=== PATIENT | male | born 1955 | race African-American/Black ===

== ENCOUNTER 2021-01-31 13:07 | Inpatient (IN) | payer MEDICAID ==
[~2021-01-31] VITALS: Ht 177.8 cm; Wt 72.7 kg
[2021-01-31 17:59] LABS: BASOPHILS % (AUTO) 0.9 % (0.0-2.0); EOSINOPHILS % (AUTO) 0.9 % (1.0-6.0); HEMATOCRIT 36.1 % (41-53); HEMOGLOBIN 12.7 g/dL (13.5-17.5); LYMPHOCYTES # (AUTO) 0.9 K/uL (1.0-4.8); LYMPHOCYTES % (AUTO) 17.5 % (22.0-44.0); MEAN CORPUSCULAR HEMOGLOBIN 34.9 pg (26.0-34.0); MEAN CORPUSCULAR HGB CONC 35.2 G/dL (31.0-37.0); MEAN CORPUSCULAR VOLUME 99 fL (80-100); MONOCYTES # (AUTO) 0.4 K/uL (0.1-1.0); MONOCYTES % (AUTO) 8.3 % (2.0-9.0); NEUTROPHILS # (AUTO) 3.7 K/uL (1.8-7.7); NEUTROPHILS % (AUTO) 72.4 % (40.0-70.0); PLATELET COUNT (AUTO) 192 K/uL (150-450); RED BLOOD CELL COUNT(AUTO) 3.64 MIL/uL (4.50-5.90); RED CELL DISTRIBUTION WIDTH 12.6 % (11.5-14.5)
[2021-01-31 18:12] LABS: ANION GAP 9 mmol/L (8-16); CALCIUM, TOTAL 9.1 mg/dL (8.8-10.5); CARBON DIOXIDE 31 mmol/L (22-29); CHLORIDE 94 mmol/L (98-107); CREATININE 0.62 mg/dL (0.60-1.30); GLOMERULAR FILTR. RATE CALC > 60 mL/min (>60); GLUCOSE,RANDOM 97 mg/dL (70-110); POTASSIUM 3.4 mmol/L (3.5-5.1); SODIUM SERUM 134 mmol/L (136-145); UREA NITROGEN, BLOOD 5 mg/dL (7-18)
[2021-01-31 18:17] LABS: ALANINE AMINOTRANSFERASE 36 U/L (12-78); ALBUMIN 3.5 g/dL (3.4-5.0); ALKALINE PHOSPHATASE 150 U/L (46-116); ASPARTATE AMINOTRANSFERASE 33 U/L (15-37); BILIRUBIN,TOTAL 2.2 mg/dL (0.1-1.0); TOTAL PROTEIN, SERUM 7.3 g/dL (6.4-8.2)
[2021-01-31 19:13] LABS: ERYTHROCYTE SEDIMENTATION RATE 6 MM/HR (0-15)
[2021-01-31 20:51] LABS: COVID AG,FIA SOURCE NASOPHARYNGEAL
[2021-01-31] MEDS ORDERED: ACETAMINOPHEN 325 MG TABLET PO PRN (21:00)
[2021-01-31] MEDS ORDERED: POTASSIUM CHLORIDE 20 MEQ ER TABLET PO PRN (21:00)
[2021-01-31] MEDS ORDERED: POTASSIUM CHL 10 MEQ/WATER 50 ML IV PRN (21:00)
[2021-01-31] MEDS: DOCUSATE SODIUM 100 MG CAPSULE PO SCH (21:43)
[2021-01-31] MEDS: HEPARIN SODIUM,PORCINE 5,000 UNITS/ML VIAL SQ SCH (23:36)
[2021-02-01] MEDS: OxyCODONE HCL/ACETAMINOPHEN 5-325 MG TABLET PO PRN ×2 (07:32→21:06)
[2021-02-01] MEDS: HEPARIN SODIUM,PORCINE 5,000 UNITS/ML VIAL SQ SCH ×3 (07:33→23:29)
[2021-02-01] MEDS: DOCUSATE SODIUM 100 MG CAPSULE PO SCH ×2 (08:20→20:58)
[2021-02-01] MEDS: FAMOTIDINE 20 MG TABLET PO SCH (08:20)
[2021-02-01] MEDS: ASPIRIN 81 MG CHEWABLE TABLET PO SCH (08:21)
[2021-02-01 09:15] VITALS: BP 163/109
[2021-02-01] MEDS ORDERED: CloNIDine HCL 0.1 MG TABLET PO ONE ×2 (09:45→16:15)
[2021-02-01 13:35] VITALS: BP 163/118
[2021-02-01] MEDS ORDERED: AmLODIPine BESYLATE 10 MG TABLET PO ONE (13:45)
[2021-02-01 15:36] VITALS: BP 164/94
[2021-02-01 19:34] VITALS: BP 141/90
[2021-02-02 04:42] VITALS: BP 152/88
[2021-02-02 08:08] VITALS: BP 159/98
[2021-02-02] MEDS: DOCUSATE SODIUM 100 MG CAPSULE PO SCH ×2 (08:44→20:57)
[2021-02-02] MEDS: AmLODIPine BESYLATE 10 MG TABLET PO SCH (08:44)
[2021-02-02] MEDS: FAMOTIDINE 20 MG TABLET PO SCH (08:44)
[2021-02-02] MEDS: ASPIRIN 81 MG CHEWABLE TABLET PO SCH (08:44)
[2021-02-02] MEDS: HEPARIN SODIUM,PORCINE 5,000 UNITS/ML VIAL SQ SCH ×3 (08:44→23:40)
[2021-02-02] MEDS ORDERED: LORazepam 2 MG/ML VIAL IVP ONE (09:30)
[2021-02-02] MEDS ORDERED: MIDAZOLAM HCL 2 MG/2 ML VIAL IVP ONE (09:45)
[2021-02-02] MEDS ORDERED: SODIUM CHLORIDE 0.9% 100 ML ONE (09:56)
[2021-02-02] MEDS ORDERED: IOHEXOL 350 MG/ML 150 ML VIAL ONE (09:56)
[2021-02-02 09:57] LABS: ANION GAP 11 mmol/L (8-16); CALCIUM, TOTAL 8.6 mg/dL (8.8-10.5); CARBON DIOXIDE 28 mmol/L (22-29); CHLORIDE 93 mmol/L (98-107); CREATININE 0.71 mg/dL (0.60-1.30); GLOMERULAR FILTR. RATE CALC > 60 mL/min (>60); GLUCOSE,RANDOM 153 mg/dL (70-110); POTASSIUM 3.5 mmol/L (3.5-5.1); SODIUM SERUM 132 mmol/L (136-145); UREA NITROGEN, BLOOD 7 mg/dL (7-18)
[2021-02-02 10:00] LABS: INR 0.9 (0.9-1.1)
[2021-02-02 10:04] LABS: ALANINE AMINOTRANSFERASE 27 U/L (12-78); ALBUMIN 3.3 g/dL (3.4-5.0); ALKALINE PHOSPHATASE 116 U/L (46-116); ASPARTATE AMINOTRANSFERASE 25 U/L (15-37); BILIRUBIN,TOTAL 0.9 mg/dL (0.1-1.0); TOTAL PROTEIN, SERUM 7.2 g/dL (6.4-8.2)
[2021-02-02 10:10] LABS: EOSINOPHILS % (AUTO) 6.2 % (1.0-6.0); HEMOGLOBIN 10.4 g/dL (13.5-17.5); LYMPHOCYTES # (AUTO) 1.1 K/uL (1.0-4.8); LYMPHOCYTES % (AUTO) 21.5 % (22.0-44.0); MEAN CORPUSCULAR HEMOGLOBIN 35.2 pg (26.0-34.0); MEAN CORPUSCULAR HGB CONC 34.8 G/dL (31.0-37.0); MEAN CORPUSCULAR VOLUME 101 fL (80-100); MONOCYTES # (AUTO) 0.5 K/uL (0.1-1.0); MONOCYTES % (AUTO) 10.8 % (2.0-9.0); NEUTROPHILS # (AUTO) 3.1 K/uL (1.8-7.7); NEUTROPHILS % (AUTO) 60.5 % (40.0-70.0); PLATELET COUNT (AUTO) 168 K/uL (150-450); RED BLOOD CELL COUNT(AUTO) 2.97 MIL/uL (4.50-5.90); RED CELL DISTRIBUTION WIDTH 12.7 % (11.5-14.5)
[2021-02-02 12:27] LABS: D-DIMER 2.08 mg/L FEU (0.00-0.50)
[2021-02-02 15:19] VITALS: BP 135/95
[2021-02-02 19:32] VITALS: BP 150/89
[2021-02-02 21:30] LABS: GLUCOMETER DEV NAME(LOC) 6N.1; GLUCOSE,POINT OF CARE 201 MG/DL (70-110)
[2021-02-02 23:33] VITALS: BP 150/96
[2021-02-03 03:35] VITALS: BP 146/88
[2021-02-03 06:16] LABS: CHOL/HDL RATIO 1.8 (4.2-7.3)
[2021-02-03 07:00] VITALS: BP 156/92
[2021-02-03] MEDS: AmLODIPine BESYLATE 10 MG TABLET PO SCH (08:43)
[2021-02-03] MEDS: FAMOTIDINE 20 MG TABLET PO SCH (08:43)
[2021-02-03] MEDS: ASPIRIN 81 MG CHEWABLE TABLET PO SCH (08:43)
[2021-02-03] MEDS: DOCUSATE SODIUM 100 MG CAPSULE PO SCH (08:43)
[2021-02-03] MEDS: HEPARIN SODIUM,PORCINE 5,000 UNITS/ML VIAL SQ SCH ×2 (08:43→16:00)
[2021-02-03] MEDS: OxyCODONE HCL/ACETAMINOPHEN 5-325 MG TABLET PO PRN (08:48)
[2021-02-03] MEDS ORDERED: LOSARTAN POTASSIUM 50 MG TABLET PO ONE (10:45)
[2021-02-03 11:45] VITALS: BP 134/84
[2021-02-03] MEDS ORDERED: ASPI-1450 PO (15:39)
[2021-02-03] MEDS ORDERED: AMLO-258 PO (15:40)
[2021-02-03] MEDS ORDERED: LOSA50TA37 PO (15:41)
[2021-02-04] MEDS ORDERED: LOSARTAN POTASSIUM 50 MG TABLET PO SCH (09:00)
== END 2021-02-03 16:40 | disposition home or self-care (01) | DRG 351 ==
LOC: EDBD 13:10 → EMS 13:10 → 6N 02-01 05:38 → 5S 02-02 05:38
PROVIDERS: ADMIT Internal Medicine; ATTEND Internal Medicine
DX: M25.562 Pain in left knee (principal); E87.6 Hypokalemia; F12.90 Cannabis use, unspecified, uncomplicated; R41.82 Altered mental status, unspecified; M25.362 Other instability, left knee; R29.6 Repeated falls; Z87.891 Personal history of nicotine dependence; Z59.00 Homelessness unspecified; Z79.899 Other long term (current) drug therapy; Z79.82 Long term (current) use of aspirin; Z20.822 Contact with and (suspected) exposure to COVID-19
CPT/HCPCS: 70450; 70496; 70551; 71045; 72100; 80053; 80061; 82947; 82962; 83605; 84484; 85025; 85379; 85610; 85651; 85730; 86850; 86900; 86901; 93005; 93306; 93880; 97116; 97161; 99285; G0480; J1644; J2250; J7050; Q9967; 36415-L1; 36415-TC

== ENCOUNTER 2021-08-16 13:02 | Inpatient (IN) | payer MEDICAID ==
[~2021-08-16] VITALS: Ht 182.9 cm; Wt 44.9 kg
[~2021-08-16 13:02] MED LIST: AMLO-258 PO; ASPI-1450 PO; LOSA-382 PO
[2021-08-16 15:34] LABS: BASOPHILS % (AUTO) 0.7 % (0.0-2.0); EOSINOPHILS % (AUTO) 1.9 % (1.0-6.0); HEMATOCRIT 32.4 % (41-53); HEMOGLOBIN 11.7 g/dL (13.5-17.5); LYMPHOCYTES # (AUTO) 0.8 K/uL (1.0-4.8); LYMPHOCYTES % (AUTO) 10.4 % (22.0-44.0); MEAN CORPUSCULAR HEMOGLOBIN 35.6 pg (26.0-34.0); MEAN CORPUSCULAR HGB CONC 36.2 G/dL (31.0-37.0); MEAN CORPUSCULAR VOLUME 99 fL (80-100); MONOCYTES # (AUTO) 0.3 K/uL (0.1-1.0); MONOCYTES % (AUTO) 3.8 % (2.0-9.0); NEUTROPHILS # (AUTO) 6.1 K/uL (1.8-7.7); NEUTROPHILS % (AUTO) 83.2 % (40.0-70.0); PLATELET COUNT (AUTO) 237 K/uL (150-450); RED BLOOD CELL COUNT(AUTO) 3.29 MIL/uL (4.50-5.90); RED CELL DISTRIBUTION WIDTH 12.7 % (11.5-14.5)
[2021-08-16 15:50] LABS: ALANINE AMINOTRANSFERASE 24 U/L (12-78); ALBUMIN 3.2 g/dL (3.4-5.0); ALKALINE PHOSPHATASE 138 U/L (46-116); ANION GAP 13 mmol/L (8-16); ASPARTATE AMINOTRANSFERASE 39 U/L (15-37); BILIRUBIN,TOTAL 0.6 mg/dL (0.1-1.0); CALCIUM, TOTAL 8.4 mg/dL (8.8-10.5); CARBON DIOXIDE 23 mmol/L (22-29); CHLORIDE 87 mmol/L (98-107); CREATININE 0.42 mg/dL (0.60-1.30); GLUCOSE,RANDOM 91 mg/dL (70-110); LIPASE 87 U/L (73-393); POTASSIUM 3.7 mmol/L (3.5-5.1); TOTAL PROTEIN, SERUM 7.1 g/dL (6.4-8.2); UREA NITROGEN, BLOOD 2 mg/dL (7-18)
[2021-08-16 15:52] LABS: GLOMERULAR FILTR. RATE CALC > 60 mL/min (>60); SODIUM SERUM 123 mmol/L (136-145)
[2021-08-16] MEDS ORDERED: SODIUM CHLORIDE 0.9% 1,000 ML IV ONE (16:00)
[2021-08-16 17:34] LABS: COVID AG,FIA SOURCE NASOPHARYNGEAL
[2021-08-16] MEDS ORDERED: FentaNYL CITRATE PF 100 MCG/2 ML VIAL IVP ONE (17:45)
[2021-08-16] MEDS ORDERED: ONDANSETRON HCL 4 MG/2 ML VIAL IVP PRN ×2 (19:00→20:00)
[2021-08-16] MEDS ORDERED: ACETAMINOPHEN 325 MG TABLET PO PRN ×2 (19:00→20:00)
[2021-08-16] MEDS ORDERED: 0.9% SODIUM CHLORIDE 10 ML SYRINGE IVP PRN (19:00)
[2021-08-16] MEDS ORDERED: ALBUTEROL SULFATE 2.5 MG/0.5 ML NEB SOLUTION NEB PRN (20:00)
[2021-08-16] MEDS ORDERED: MAGNESIUM HYDROXIDE SUSPENSION 30 ML UDCUP PO PRN (20:00)
[2021-08-16] MEDS ORDERED: BISACODYL 10 MG RECTAL RECTAL SUPPOSITORY PR PRN (20:00)
[2021-08-16] MEDS ORDERED: IPRATROPIUM BROMIDE 0.5 MG/2.5 ML NEB SOLUTION NEB PRN (20:00)
[2021-08-16] MEDS ORDERED: MORPHINE SULFATE 2 MG/ML SYRINGE IVP PRN (20:00)
[2021-08-16] MEDS: DOCUSATE SODIUM 100 MG CAPSULE PO SCH (22:11)
[2021-08-16] MEDS: HYDROCODONE/ACETAMINOPHEN 5-325 MG TABLET PO PRN (23:56)
[2021-08-17 00:45] VITALS: BP 167/102
[2021-08-17] MEDS: HEPARIN SODIUM,PORCINE 5,000 UNITS/ML VIAL SQ SCH ×3 (03:08→16:33)
[2021-08-17 05:00] VITALS: BP 143/96
[2021-08-17 08:25] VITALS: BP 142/92
[2021-08-17] MEDS: DOCUSATE SODIUM 100 MG CAPSULE PO SCH (08:33)
[2021-08-17] MEDS: ASPIRIN 81 MG CHEWABLE TABLET PO SCH (08:34)
[2021-08-17] MEDS: LOSARTAN POTASSIUM 50 MG TABLET PO SCH (08:34)
[2021-08-17] MEDS: AmLODIPine BESYLATE 10 MG TABLET PO SCH (08:34)
[2021-08-17] MEDS: PANTOPRAZOLE SODIUM 40 MG/VIAL IVP SCH (08:35)
[2021-08-17] MEDS: HYDROCODONE/ACETAMINOPHEN 5-325 MG TABLET PO PRN ×2 (08:39→16:35)
[2021-08-17 11:43] LABS: BASOPHILS % (AUTO) 0.9 % (0.0-2.0); EOSINOPHILS % (AUTO) 1.1 % (1.0-6.0); HEMATOCRIT 31.1 % (41-53); HEMOGLOBIN 11.4 g/dL (13.5-17.5); LYMPHOCYTES # (AUTO) 0.7 K/uL (1.0-4.8); LYMPHOCYTES % (AUTO) 15.3 % (22.0-44.0); MEAN CORPUSCULAR HEMOGLOBIN 35.9 pg (26.0-34.0); MEAN CORPUSCULAR HGB CONC 36.5 G/dL (31.0-37.0); MEAN CORPUSCULAR VOLUME 98 fL (80-100); MONOCYTES # (AUTO) 0.5 K/uL (0.1-1.0); MONOCYTES % (AUTO) 10.6 % (2.0-9.0); NEUTROPHILS # (AUTO) 3.2 K/uL (1.8-7.7); NEUTROPHILS % (AUTO) 72.1 % (40.0-70.0); PLATELET COUNT (AUTO) 240 K/uL (150-450); RED BLOOD CELL COUNT(AUTO) 3.17 MIL/uL (4.50-5.90); RED CELL DISTRIBUTION WIDTH 12.7 % (11.5-14.5)
[2021-08-17 11:58] LABS: ANION GAP 11 mmol/L (8-16); CALCIUM, TOTAL 8.3 mg/dL (8.8-10.5); CARBON DIOXIDE 27 mmol/L (22-29); CHLORIDE 88 mmol/L (98-107); CREATININE 0.44 mg/dL (0.60-1.30); GLUCOSE,RANDOM 78 mg/dL (70-110); POTASSIUM 3.5 mmol/L (3.5-5.1); SODIUM SERUM 126 mmol/L (136-145); UREA NITROGEN, BLOOD 4 mg/dL (7-18)
[2021-08-17 11:59] LABS: GLOMERULAR FILTR. RATE CALC > 60 mL/min (>60)
[2021-08-17 12:02] VITALS: BP 158/90
[2021-08-17 17:11] LABS: ANION GAP 8 mmol/L (8-16); CALCIUM, TOTAL 8.5 mg/dL (8.8-10.5); CARBON DIOXIDE 28 mmol/L (22-29); CHLORIDE 88 mmol/L (98-107); GLOMERULAR FILTR. RATE CALC > 60 mL/min (>60); GLUCOSE,RANDOM 85 mg/dL (70-110); POTASSIUM 3.2 mmol/L (3.5-5.1); UREA NITROGEN, BLOOD 5 mg/dL (7-18)
[2021-08-17 17:12] LABS: SODIUM SERUM 124 mmol/L (136-145)
[2021-08-17 19:09] VITALS: BP 146/90
[2021-08-17] MEDS ORDERED: POTASSIUM CHLORIDE 10 MEQ ER TABLET PO ONE (20:15)
[2021-08-17 23:44] VITALS: BP 141/89
[2021-08-18] MEDS: HEPARIN SODIUM,PORCINE 5,000 UNITS/ML VIAL SQ SCH ×4 (00:11→23:55)
[2021-08-18 00:26] LABS: APPEARANCE,URINE CLEAR (CLEAR); BILIRUBIN,URINE NEGATIVE (NEGATIVE); GLUCOSE, URINE (UA) NEGATIVE (NEGATIVE); KETONES,URINE TRACE mg/dL (NEGATIVE); LEUKOCYTE ESTERASE ,URINE NEGATIVE (NEGATIVE); NITRATE,URINE NEGATIVE (NEGATIVE); OCCULT BLOOD,URINE NEGATIVE (NEGATIVE); PROTEIN,URINE TRACE mg/dL (NEGATIVE); SODIUM,URINE RANDOM 31 mmol/l (20-110); SPECIFIC GRAVITIY, URINE 1.019 (1.003-1.030)
[2021-08-18 00:32] LABS: AMPHET/METH SCREEN,URINE NEGATIVE (NEGATIVE); BARBITURATE SCREEN, URINE NEGATIVE (NEGATIVE); BENZODIAZEPINES SCREEN,URINE NEGATIVE (NEGATIVE); CANNABINOID SCREEN,URINE POSITIVE (NEGATIVE); COCAINE SCREEN,URINE NEGATIVE (NEGATIVE); METHADONE SCREEN, URINE NEGATIVE (NEGATIVE); OPIATE SCREEN,URINE POSITIVE (NEGATIVE)
[2021-08-18 00:34] LABS: PHENCYCLIDINE SCREEN,URINE NEGATIVE (NEGATIVE)
[2021-08-18 04:20] VITALS: BP 143/90
[2021-08-18] MEDS: HYDROCODONE/ACETAMINOPHEN 5-325 MG TABLET PO PRN ×3 (06:27→23:57)
[2021-08-18 07:25] VITALS: BP 145/78
[2021-08-18 08:06] LABS: ANION GAP 9 mmol/L (8-16); CALCIUM, TOTAL 8.5 mg/dL (8.8-10.5); CARBON DIOXIDE 29 mmol/L (22-29); CHLORIDE 89 mmol/L (98-107); CREATININE 0.48 mg/dL (0.60-1.30); GLUCOSE,RANDOM 88 mg/dL (70-110); PHOSPHORUS 4.2 mg/dL (2.5-4.9); POTASSIUM 3.8 mmol/L (3.5-5.1); SODIUM SERUM 127 mmol/L (136-145); THYROID STIMULATING HORMONE 1.11 uIU/mL (0.36-3.74); UREA NITROGEN, BLOOD 6 mg/dL (7-18)
[2021-08-18 08:07] LABS: GLOMERULAR FILTR. RATE CALC > 60 mL/min (>60)
[2021-08-18] MEDS: DOCUSATE SODIUM 100 MG CAPSULE PO SCH ×2 (10:07→21:17)
[2021-08-18] MEDS: ASPIRIN 81 MG CHEWABLE TABLET PO SCH (10:08)
[2021-08-18] MEDS: LOSARTAN POTASSIUM 50 MG TABLET PO SCH (10:08)
[2021-08-18] MEDS: PANTOPRAZOLE SODIUM 40 MG/VIAL IVP SCH (10:08)
[2021-08-18] MEDS: AmLODIPine BESYLATE 10 MG TABLET PO SCH (10:09)
[2021-08-18] MEDS: POTASSIUM CHLORIDE 10 MEQ in SODIUM CHLORIDE 0.9% 1,000 ML IV SCH (11:35)
[2021-08-18 11:47] VITALS: BP 137/89
[2021-08-18 15:19] VITALS: BP 129/82
[2021-08-18 17:27] LABS: ANION GAP 7 mmol/L (8-16); CALCIUM, TOTAL 7.9 mg/dL (8.8-10.5); CARBON DIOXIDE 27 mmol/L (22-29); CHLORIDE 94 mmol/L (98-107); CREATININE 0.63 mg/dL (0.60-1.30); GLOMERULAR FILTR. RATE CALC > 60 mL/min (>60); GLUCOSE,RANDOM 116 mg/dL (70-110); POTASSIUM 3.6 mmol/L (3.5-5.1); SODIUM SERUM 128 mmol/L (136-145); UREA NITROGEN, BLOOD 9 mg/dL (7-18)
[2021-08-18 19:19] VITALS: BP 134/88
[2021-08-18] MEDS: ZOLPIDEM TARTRATE 5 MG TABLET PO PRN (21:17)
[2021-08-18 23:00] VITALS: BP 153/102
[2021-08-18] MEDS: SODIUM CHLORIDE 1 GM TABLET PO SCH (23:54)
[2021-08-19] MEDS: POTASSIUM CHLORIDE 10 MEQ in SODIUM CHLORIDE 0.9% 1,000 ML IV SCH (03:20)
[2021-08-19 04:38] VITALS: BP 152/93
[2021-08-19] MEDS: SODIUM CHLORIDE 1 GM TABLET PO SCH ×3 (05:34→17:18)
[2021-08-19] MEDS: HYDROCODONE/ACETAMINOPHEN 5-325 MG TABLET PO PRN ×2 (05:34→21:03)
[2021-08-19 07:37] LABS: ANION GAP 7 mmol/L (8-16); CALCIUM, TOTAL 8.3 mg/dL (8.8-10.5); CARBON DIOXIDE 27 mmol/L (22-29); CHLORIDE 91 mmol/L (98-107); CREATININE 0.42 mg/dL (0.60-1.30); GLUCOSE,RANDOM 106 mg/dL (70-110); PHOSPHORUS 2.9 mg/dL (2.5-4.9); POTASSIUM 3.1 mmol/L (3.5-5.1); SODIUM SERUM 125 mmol/L (136-145); UREA NITROGEN, BLOOD 3 mg/dL (7-18)
[2021-08-19 07:39] LABS: GLOMERULAR FILTR. RATE CALC > 60 mL/min (>60)
[2021-08-19 08:00] VITALS: BP 156/87
[2021-08-19] MEDS ORDERED: SODIUM CHLORIDE 3% 500 ML IV ONE (08:15)
[2021-08-19] MEDS ORDERED: POTASSIUM CHL 10 MEQ/WATER 50 ML IV PRN (08:15)
[2021-08-19] MEDS ORDERED: MAGNESIUM SULFATE 4 GM/WATER 100 ML IV ONE (08:15)
[2021-08-19] MEDS: POTASSIUM CHLORIDE 20 MEQ ER TABLET PO PRN (08:58)
[2021-08-19] MEDS: LOSARTAN POTASSIUM 50 MG TABLET PO SCH (08:58)
[2021-08-19] MEDS: ASPIRIN 81 MG CHEWABLE TABLET PO SCH (08:58)
[2021-08-19] MEDS: PANTOPRAZOLE SODIUM 40 MG/VIAL IVP SCH (08:58)
[2021-08-19] MEDS: DOCUSATE SODIUM 100 MG CAPSULE PO SCH ×2 (08:58→20:54)
[2021-08-19] MEDS: AmLODIPine BESYLATE 10 MG TABLET PO SCH (08:58)
[2021-08-19] MEDS: HEPARIN SODIUM,PORCINE 5,000 UNITS/ML VIAL SQ SCH ×2 (08:59→16:45)
[2021-08-19 12:09] LABS: POTASSIUM 3.6 mmol/L (3.5-5.1)
[2021-08-19 15:58] VITALS: BP 145/94
[2021-08-19 19:30] VITALS: BP 137/83
[2021-08-19] MEDS: METOPROLOL TARTRATE 25 MG TABLET PO SCH (20:55)
[2021-08-19] MEDS ORDERED: SODIUM CHLORIDE 3% 500 ML IV SCH (23:45)
[2021-08-20] MEDS: SODIUM CHLORIDE 1 GM TABLET PO SCH ×5 (00:41→23:40)
[2021-08-20] MEDS: HEPARIN SODIUM,PORCINE 5,000 UNITS/ML VIAL SQ SCH ×4 (00:42→23:41)
[2021-08-20 04:00] VITALS: BP 132/84
[2021-08-20 06:56] LABS: GLUCOMETER DEV NAME(LOC) 6N.1; GLUCOSE,POINT OF CARE 94 MG/DL (70-110)
[2021-08-20 07:44] VITALS: BP 144/89
[2021-08-20 08:35] LABS: ANION GAP 6 mmol/L (8-16); CALCIUM, TOTAL 8.7 mg/dL (8.8-10.5); CARBON DIOXIDE 29 mmol/L (22-29); CHLORIDE 95 mmol/L (98-107); CREATININE 0.36 mg/dL (0.60-1.30); GLUCOSE,RANDOM 88 mg/dL (70-110); PHOSPHORUS 2.7 mg/dL (2.5-4.9); POTASSIUM 3.2 mmol/L (3.5-5.1); SODIUM SERUM 130 mmol/L (136-145); UREA NITROGEN, BLOOD 3 mg/dL (7-18)
[2021-08-20 08:36] LABS: GLOMERULAR FILTR. RATE CALC > 60 mL/min (>60)
[2021-08-20] MEDS ORDERED: MAGNESIUM SULFATE 2 GM/WATER 50 ML IV ONE (09:15)
[2021-08-20] MEDS: PANTOPRAZOLE SODIUM 40 MG/VIAL IVP SCH (09:16)
[2021-08-20] MEDS: LOSARTAN POTASSIUM 50 MG TABLET PO SCH (09:16)
[2021-08-20] MEDS: AmLODIPine BESYLATE 10 MG TABLET PO SCH (09:16)
[2021-08-20] MEDS: ASPIRIN 81 MG CHEWABLE TABLET PO SCH (09:17)
[2021-08-20] MEDS: METOPROLOL TARTRATE 25 MG TABLET PO SCH ×2 (09:17→20:04)
[2021-08-20] MEDS: DOCUSATE SODIUM 100 MG CAPSULE PO SCH ×2 (09:17→20:04)
[2021-08-20] MEDS: HYDROCODONE/ACETAMINOPHEN 5-325 MG TABLET PO PRN ×2 (09:20→16:21)
[2021-08-20] MEDS: POTASSIUM CHLORIDE 20 MEQ ER TABLET PO PRN (09:49)
[2021-08-20] MEDS: MULTIVITAMINS, THERAPEUTIC TABLET PO SCH (13:09)
[2021-08-20] MEDS: THIAMINE 100 MG TABLET PO SCH (13:09)
[2021-08-20] MEDS: FOLIC ACID 1 MG TABLET PO SCH (13:09)
[2021-08-20 15:03] LABS: POTASSIUM 4.1 mmol/L (3.5-5.1)
[2021-08-20 15:33] VITALS: BP 162/86
[2021-08-20 19:26] VITALS: BP 142/93
[2021-08-20] MEDS: ZOLPIDEM TARTRATE 5 MG TABLET PO PRN (23:41)
[2021-08-21] MEDS: HYDROCODONE/ACETAMINOPHEN 5-325 MG TABLET PO PRN ×2 (04:19→20:22)
[2021-08-21 04:29] VITALS: BP_SYST 140; BP_DIAS 66; BP_DIAS 90
[2021-08-21 05:51] LABS: CALCIUM, TOTAL 8.3 mg/dL (8.8-10.5); CARBON DIOXIDE 28 mmol/L (22-29); CHLORIDE 92 mmol/L (98-107); CREATININE 0.38 mg/dL (0.60-1.30); GLUCOSE,RANDOM 84 mg/dL (70-110); UREA NITROGEN, BLOOD 6 mg/dL (7-18)
[2021-08-21] MEDS: SODIUM CHLORIDE 1 GM TABLET PO SCH ×4 (06:01→23:35)
[2021-08-21 06:20] LABS: POTASSIUM 3.9 mmol/L (3.5-5.1)
[2021-08-21 06:25] LABS: ANION GAP 6 mmol/L (8-16); GLOMERULAR FILTR. RATE CALC > 60 mL/min (>60); SODIUM SERUM 126 mmol/L (136-145)
[2021-08-21 08:12] VITALS: BP 139/89
[2021-08-21] MEDS: HEPARIN SODIUM,PORCINE 5,000 UNITS/ML VIAL SQ SCH ×3 (08:49→23:36)
[2021-08-21] MEDS: PANTOPRAZOLE SODIUM 40 MG/VIAL IVP SCH (08:49)
[2021-08-21] MEDS: ASPIRIN 81 MG CHEWABLE TABLET PO SCH (08:50)
[2021-08-21] MEDS: DOCUSATE SODIUM 100 MG CAPSULE PO SCH ×2 (08:50→20:22)
[2021-08-21] MEDS: LOSARTAN POTASSIUM 50 MG TABLET PO SCH (08:50)
[2021-08-21] MEDS: METOPROLOL TARTRATE 25 MG TABLET PO SCH ×2 (08:51→20:22)
[2021-08-21] MEDS: AmLODIPine BESYLATE 10 MG TABLET PO SCH (08:51)
[2021-08-21] MEDS: MULTIVITAMINS, THERAPEUTIC TABLET PO SCH (08:51)
[2021-08-21] MEDS: FOLIC ACID 1 MG TABLET PO SCH (08:51)
[2021-08-21] MEDS: THIAMINE 100 MG TABLET PO SCH (08:52)
[2021-08-21] MEDS: SODIUM CHLORIDE 3% 500 ML IV SCH ×2 (11:16→23:35)
[2021-08-21 16:16] VITALS: BP 130/86
[2021-08-21 20:14] VITALS: BP 158/88
[2021-08-22 04:59] VITALS: BP 143/92
[2021-08-22] MEDS: SODIUM CHLORIDE 1 GM TABLET PO SCH ×4 (05:17→23:42)
[2021-08-22] MEDS: HYDROCODONE/ACETAMINOPHEN 5-325 MG TABLET PO PRN ×3 (05:20→20:49)
[2021-08-22 08:00] VITALS: BP 158/101
[2021-08-22] MEDS: LOSARTAN POTASSIUM 50 MG TABLET PO SCH (10:14)
[2021-08-22] MEDS: ASPIRIN 81 MG CHEWABLE TABLET PO SCH (10:14)
[2021-08-22] MEDS: FOLIC ACID 1 MG TABLET PO SCH (10:15)
[2021-08-22] MEDS: HEPARIN SODIUM,PORCINE 5,000 UNITS/ML VIAL SQ SCH ×3 (10:15→23:42)
[2021-08-22] MEDS: AmLODIPine BESYLATE 10 MG TABLET PO SCH (10:15)
[2021-08-22] MEDS: MULTIVITAMINS, THERAPEUTIC TABLET PO SCH (10:15)
[2021-08-22] MEDS: PANTOPRAZOLE SODIUM 40 MG/VIAL IVP SCH (10:15)
[2021-08-22] MEDS: DOCUSATE SODIUM 100 MG CAPSULE PO SCH ×2 (10:16→20:48)
[2021-08-22] MEDS: THIAMINE 100 MG TABLET PO SCH (10:16)
[2021-08-22] MEDS: METOPROLOL TARTRATE 25 MG TABLET PO SCH ×2 (10:16→20:49)
[2021-08-22 10:41] VITALS: BP 149/90
[2021-08-22 16:00] VITALS: BP 109/70
[2021-08-22] MEDS ORDERED: SODIUM CHLORIDE 3% 500 ML IV SCH (18:00)
[2021-08-22] MEDS: SODIUM CHLORIDE 3% 500 ML IV SCH (18:08)
[2021-08-22 19:35] VITALS: BP 143/87
[2021-08-23 04:05] VITALS: BP 131/75
[2021-08-23] MEDS ORDERED: SODIUM CHLORIDE 0.9% 0 ML ONE (05:32)
[2021-08-23] MEDS ORDERED: SODIUM CHLORIDE 0.9% 1,000 ML IV ONE (06:00)
[2021-08-23] MEDS ORDERED: LIDOCAINE 1%/EPI 1:200,000/PF 30 ML VIAL ONE (06:15)
[2021-08-23] MEDS ORDERED: SODIUM CL IRRIG SOLN BAG 3,000 ML IRRIG ONE (06:15)
[2021-08-23] MEDS ORDERED: BUPIVACAINE HCL/PF 0.25% 30 ML VIAL ONE (06:15)
[2021-08-23] MEDS ORDERED: VANCOMYCIN HCL 1 GM/VIAL ONE (06:15)
[2021-08-23] MEDS ORDERED: BUPIVACAINE/EPI/PF 0.5% 30 ML VIAL ONE (07:41)
[2021-08-23] MEDS ORDERED: BUPIVACAINE 0.25%/EPI 1:200,000/PF 10 ML VIAL ONE (07:41)
[2021-08-23] MEDS ORDERED: BUPIVACAINE LIPOSOME/PF 1.3%-13.3MG/ML SUSPENSION 20 ML VIAL INJ ONE (08:30)
[2021-08-23] MEDS ORDERED: SUGAMMADEX SODIUM 200 MG/2 ML VIAL IVP ONE (09:17)
[2021-08-23] MEDS ORDERED: FentaNYL CITRATE PF 100 MCG/2 ML VIAL IVP PRN (10:00)
[2021-08-23] MEDS ORDERED: HYDROmorphone 2 MG/ML VIAL IVP PRN (10:00)
[2021-08-23 11:06] VITALS: BP 128/76
[2021-08-23] MEDS: HEPARIN SODIUM,PORCINE 5,000 UNITS/ML VIAL SQ SCH ×3 (11:23→23:20)
[2021-08-23] MEDS: HYDROCODONE/ACETAMINOPHEN 5-325 MG TABLET PO PRN ×3 (11:23→23:25)
[2021-08-23] MEDS: PANTOPRAZOLE SODIUM 40 MG/VIAL IVP SCH (11:23)
[2021-08-23] MEDS: THIAMINE 100 MG TABLET PO SCH (11:23)
[2021-08-23] MEDS: ASPIRIN 81 MG CHEWABLE TABLET PO SCH (11:24)
[2021-08-23] MEDS: FOLIC ACID 1 MG TABLET PO SCH (11:24)
[2021-08-23] MEDS: METOPROLOL TARTRATE 25 MG TABLET PO SCH ×2 (11:24→20:11)
[2021-08-23] MEDS: LOSARTAN POTASSIUM 50 MG TABLET PO SCH (11:24)
[2021-08-23] MEDS: AmLODIPine BESYLATE 10 MG TABLET PO SCH (11:24)
[2021-08-23] MEDS: MULTIVITAMINS, THERAPEUTIC TABLET PO SCH (11:24)
[2021-08-23] MEDS: DOCUSATE SODIUM 100 MG CAPSULE PO SCH ×2 (11:24→20:11)
[2021-08-23] MEDS ORDERED: ONDANSETRON HCL 4 MG/2 ML VIAL IVP ONE (12:00)
[2021-08-23] MEDS ORDERED: DEXAMETHASONE SOD PHOS 4 MG/ML VIAL IVP ONE (12:00)
[2021-08-23] MEDS ORDERED: PROPOFOL 1% 20 ML VIAL IVP ONE (12:00)
[2021-08-23] MEDS ORDERED: 0.9% SODIUM CHLORIDE 10 ML VIAL IVP ONE (12:00)
[2021-08-23] MEDS ORDERED: METOCLOPRAMIDE HCL 5 MG/ML 2 ML VIAL IVP ONE (12:00)
[2021-08-23] MEDS ORDERED: MIDAZOLAM HCL 2 MG/2 ML VIAL IVP ONE (12:00)
[2021-08-23] MEDS ORDERED: LIDOCAINE/PF 2% 5 ML VIAL IM ONE (12:00)
[2021-08-23] MEDS ORDERED: PHENYLEPHRINE HCL 10 MG/ML VIAL IVP ONE (12:00)
[2021-08-23] MEDS ORDERED: ESMOLOL HCL 10 MG/ML 10 ML VIAL IVP ONE (12:00)
[2021-08-23] MEDS ORDERED: HYDROmorphone 2 MG/ML VIAL IVP ONE (12:00)
[2021-08-23] MEDS ORDERED: FentaNYL CITRATE PF 250 MCG/5 ML VIAL IVP ONE (12:00)
[2021-08-23 15:33] LABS: ANION GAP 13 mmol/L (8-16); CALCIUM, TOTAL 8.5 mg/dL (8.8-10.5); CARBON DIOXIDE 25 mmol/L (22-29); CHLORIDE 99 mmol/L (98-107); CREATININE 0.75 mg/dL (0.60-1.30); GLOMERULAR FILTR. RATE CALC > 60 mL/min (>60); GLUCOSE,RANDOM 174 mg/dL (70-110); POTASSIUM 3.5 mmol/L (3.5-5.1); SODIUM SERUM 137 mmol/L (136-145); UREA NITROGEN, BLOOD 16 mg/dL (7-18)
[2021-08-23] MEDS: CeFAZolin 1 GM/DEXTROSE 50 ML IV SCH ×2 (15:57→23:19)
[2021-08-23 16:47] VITALS: BP 134/78
[2021-08-23 19:28] VITALS: BP 116/75
[2021-08-24 04:28] VITALS: BP 130/77
[2021-08-24 07:39] VITALS: BP 135/85
[2021-08-24 07:59] LABS: ANION GAP 6 mmol/L (8-16); CALCIUM, TOTAL 8.5 mg/dL (8.8-10.5); CARBON DIOXIDE 28 mmol/L (22-29); CHLORIDE 99 mmol/L (98-107); CREATININE 0.48 mg/dL (0.60-1.30); GLUCOSE,RANDOM 109 mg/dL (70-110); PHOSPHORUS 3.6 mg/dL (2.5-4.9); POTASSIUM 3.3 mmol/L (3.5-5.1); SODIUM SERUM 133 mmol/L (136-145); UREA NITROGEN, BLOOD 19 mg/dL (7-18)
[2021-08-24] MEDS: OXYGEN THERAPY IH SCH ×2 (08:00→20:00)
[2021-08-24 08:04] LABS: GLOMERULAR FILTR. RATE CALC > 60 mL/min (>60)
[2021-08-24] MEDS: POTASSIUM CHLORIDE 20 MEQ ER TABLET PO PRN (08:15)
[2021-08-24] MEDS: FOLIC ACID 1 MG TABLET PO SCH (08:16)
[2021-08-24] MEDS: HYDROCODONE/ACETAMINOPHEN 5-325 MG TABLET PO PRN ×2 (08:16→16:59)
[2021-08-24] MEDS: ASPIRIN 81 MG CHEWABLE TABLET PO SCH (08:16)
[2021-08-24] MEDS: MULTIVITAMINS, THERAPEUTIC TABLET PO SCH (08:16)
[2021-08-24] MEDS: METOPROLOL TARTRATE 25 MG TABLET PO SCH ×2 (08:17→20:03)
[2021-08-24] MEDS: THIAMINE 100 MG TABLET PO SCH (08:17)
[2021-08-24] MEDS: LOSARTAN POTASSIUM 50 MG TABLET PO SCH (08:17)
[2021-08-24] MEDS: PANTOPRAZOLE SODIUM 40 MG/VIAL IVP SCH (08:17)
[2021-08-24] MEDS: AmLODIPine BESYLATE 10 MG TABLET PO SCH (08:17)
[2021-08-24] MEDS: HEPARIN SODIUM,PORCINE 5,000 UNITS/ML VIAL SQ SCH ×2 (08:17→16:58)
[2021-08-24] MEDS: DOCUSATE SODIUM 100 MG CAPSULE PO SCH ×2 (08:18→20:03)
[2021-08-24] MEDS: POTASSIUM CHLORIDE 20 MEQ ER TABLET PO SCH (11:15)
[2021-08-24 15:45] VITALS: BP 132/81
[2021-08-24 20:17] VITALS: BP 119/76
[2021-08-25] MEDS: HEPARIN SODIUM,PORCINE 5,000 UNITS/ML VIAL SQ SCH ×3 (00:03→16:38)
[2021-08-25 05:12] VITALS: BP 137/87
[2021-08-25] MEDS: HYDROCODONE/ACETAMINOPHEN 5-325 MG TABLET PO PRN ×3 (05:16→20:40)
[2021-08-25] MEDS: OXYGEN THERAPY IH SCH ×2 (08:00→20:00)
[2021-08-25 08:14] VITALS: BP 142/83
[2021-08-25] MEDS: LOSARTAN POTASSIUM 50 MG TABLET PO SCH (08:47)
[2021-08-25] MEDS: POTASSIUM CHLORIDE 20 MEQ ER TABLET PO SCH (08:47)
[2021-08-25] MEDS: THIAMINE 100 MG TABLET PO SCH (08:47)
[2021-08-25] MEDS: ASPIRIN 81 MG CHEWABLE TABLET PO SCH (08:47)
[2021-08-25] MEDS: METOPROLOL TARTRATE 25 MG TABLET PO SCH ×2 (08:47→20:40)
[2021-08-25] MEDS: AmLODIPine BESYLATE 10 MG TABLET PO SCH (08:47)
[2021-08-25] MEDS: DOCUSATE SODIUM 100 MG CAPSULE PO SCH ×2 (08:48→20:40)
[2021-08-25] MEDS: MULTIVITAMINS, THERAPEUTIC TABLET PO SCH (08:48)
[2021-08-25] MEDS: FOLIC ACID 1 MG TABLET PO SCH (08:48)
[2021-08-25] MEDS: PANTOPRAZOLE SODIUM 40 MG/VIAL IVP SCH (08:48)
[2021-08-25 16:00] VITALS: BP 125/80
[2021-08-25 19:53] VITALS: BP 118/80
[2021-08-26] MEDS: HEPARIN SODIUM,PORCINE 5,000 UNITS/ML VIAL SQ SCH ×3 (00:16→15:21)
[2021-08-26 04:40] VITALS: BP 152/93
[2021-08-26 07:44] VITALS: BP 155/93
[2021-08-26] MEDS: OXYGEN THERAPY IH SCH ×2 (08:00→20:00)
[2021-08-26] MEDS: PANTOPRAZOLE SODIUM 40 MG DR TABLET PO SCH (08:05)
[2021-08-26] MEDS: DOCUSATE SODIUM 100 MG CAPSULE PO SCH ×2 (08:05→20:03)
[2021-08-26] MEDS: MULTIVITAMINS, THERAPEUTIC TABLET PO SCH (08:05)
[2021-08-26] MEDS: METOPROLOL TARTRATE 25 MG TABLET PO SCH ×2 (08:05→20:04)
[2021-08-26] MEDS: ASPIRIN 81 MG CHEWABLE TABLET PO SCH (08:05)
[2021-08-26] MEDS: AmLODIPine BESYLATE 10 MG TABLET PO SCH (08:05)
[2021-08-26] MEDS: POTASSIUM CHLORIDE 20 MEQ ER TABLET PO SCH (08:06)
[2021-08-26] MEDS: FOLIC ACID 1 MG TABLET PO SCH (08:06)
[2021-08-26] MEDS: THIAMINE 100 MG TABLET PO SCH (08:06)
[2021-08-26] MEDS: LOSARTAN POTASSIUM 50 MG TABLET PO SCH (08:06)
[2021-08-26] MEDS: HYDROCODONE/ACETAMINOPHEN 5-325 MG TABLET PO PRN ×2 (08:07→20:03)
[2021-08-26 15:37] VITALS: BP 134/84
[2021-08-26 20:05] VITALS: BP 135/84
[2021-08-27] MEDS: HEPARIN SODIUM,PORCINE 5,000 UNITS/ML VIAL SQ SCH ×4 (00:22→23:07)
[2021-08-27 05:28] VITALS: BP 150/86
[2021-08-27 07:37] VITALS: BP 144/92
[2021-08-27 08:25] LABS: ANION GAP 9 mmol/L (8-16); CALCIUM, TOTAL 8.7 mg/dL (8.8-10.5); CARBON DIOXIDE 27 mmol/L (22-29); CHLORIDE 90 mmol/L (98-107); CREATININE 0.37 mg/dL (0.60-1.30); GLUCOSE,RANDOM 91 mg/dL (70-110); POTASSIUM 3.8 mmol/L (3.5-5.1); SODIUM SERUM 126 mmol/L (136-145); UREA NITROGEN, BLOOD 10 mg/dL (7-18)
[2021-08-27 08:29] LABS: GLOMERULAR FILTR. RATE CALC > 60 mL/min (>60)
[2021-08-27] MEDS: PANTOPRAZOLE SODIUM 40 MG DR TABLET PO SCH (08:41)
[2021-08-27] MEDS: MULTIVITAMINS, THERAPEUTIC TABLET PO SCH (08:41)
[2021-08-27] MEDS: METOPROLOL TARTRATE 25 MG TABLET PO SCH ×2 (08:41→20:04)
[2021-08-27] MEDS: ASPIRIN 81 MG CHEWABLE TABLET PO SCH (08:41)
[2021-08-27] MEDS: FOLIC ACID 1 MG TABLET PO SCH (08:41)
[2021-08-27] MEDS: DOCUSATE SODIUM 100 MG CAPSULE PO SCH ×2 (08:42→20:03)
[2021-08-27] MEDS: HYDROCODONE/ACETAMINOPHEN 5-325 MG TABLET PO PRN ×2 (08:42→20:03)
[2021-08-27] MEDS: THIAMINE 100 MG TABLET PO SCH (08:42)
[2021-08-27] MEDS: LOSARTAN POTASSIUM 50 MG TABLET PO SCH (08:42)
[2021-08-27] MEDS: POTASSIUM CHLORIDE 20 MEQ ER TABLET PO SCH (08:42)
[2021-08-27] MEDS: AmLODIPine BESYLATE 10 MG TABLET PO SCH (08:42)
[2021-08-27] MEDS ORDERED: SIMETHICONE 80 MG CHEWABLE TABLET CHEW PRN (09:45)
[2021-08-27 15:49] VITALS: BP 104/70
[2021-08-27] MEDS: SODIUM CHLORIDE 1 GM TABLET PO SCH ×2 (16:30→20:11)
[2021-08-27] MEDS: SUCRALFATE 1 GM/10 ML SUSPENSION UDCUP PO SCH (16:30)
[2021-08-27 20:25] VITALS: BP 141/86
[2021-08-28 04:29] VITALS: BP 132/78
[2021-08-28] MEDS: SUCRALFATE 1 GM/10 ML SUSPENSION UDCUP PO SCH ×2 (05:36→18:34)
[2021-08-28 08:00] VITALS: BP 124/76
[2021-08-28 08:23] LABS: ANION GAP 6 mmol/L (8-16); CARBON DIOXIDE 29 mmol/L (22-29); CHLORIDE 92 mmol/L (98-107); CREATININE 0.43 mg/dL (0.60-1.30); GLUCOSE,RANDOM 88 mg/dL (70-110); POTASSIUM 4.3 mmol/L (3.5-5.1); SODIUM SERUM 127 mmol/L (136-145); UREA NITROGEN, BLOOD 10 mg/dL (7-18)
[2021-08-28 08:25] LABS: GLOMERULAR FILTR. RATE CALC > 60 mL/min (>60)
[2021-08-28] MEDS: HEPARIN SODIUM,PORCINE 5,000 UNITS/ML VIAL SQ SCH ×3 (08:54→23:13)
[2021-08-28] MEDS: ASPIRIN 81 MG CHEWABLE TABLET PO SCH (09:22)
[2021-08-28] MEDS: POTASSIUM CHLORIDE 20 MEQ ER TABLET PO SCH (09:22)
[2021-08-28] MEDS: PANTOPRAZOLE SODIUM 40 MG DR TABLET PO SCH (09:22)
[2021-08-28] MEDS: FOLIC ACID 1 MG TABLET PO SCH (09:22)
[2021-08-28] MEDS: SODIUM CHLORIDE 1 GM TABLET PO SCH ×3 (09:23→20:32)
[2021-08-28] MEDS: MULTIVITAMINS, THERAPEUTIC TABLET PO SCH (09:23)
[2021-08-28] MEDS: HYDROCODONE/ACETAMINOPHEN 5-325 MG TABLET PO PRN (09:23)
[2021-08-28] MEDS: LOSARTAN POTASSIUM 50 MG TABLET PO SCH (09:23)
[2021-08-28] MEDS: THIAMINE 100 MG TABLET PO SCH (09:23)
[2021-08-28] MEDS: AmLODIPine BESYLATE 10 MG TABLET PO SCH (09:23)
[2021-08-28] MEDS: METOPROLOL TARTRATE 25 MG TABLET PO SCH ×2 (09:23→20:34)
[2021-08-28] MEDS: DOCUSATE SODIUM 100 MG CAPSULE PO SCH ×2 (09:23→20:32)
[2021-08-28 16:00] VITALS: BP 122/80
[2021-08-28 20:00] VITALS: BP 124/79
[2021-08-29 03:46] VITALS: BP 135/84
[2021-08-29] MEDS: SUCRALFATE 1 GM/10 ML SUSPENSION UDCUP PO SCH ×2 (06:29→16:35)
[2021-08-29 07:18] LABS: CALCIUM, TOTAL 8.6 mg/dL (8.8-10.5); CARBON DIOXIDE 26 mmol/L (22-29); CREATININE 0.37 mg/dL (0.60-1.30); GLUCOSE,RANDOM 95 mg/dL (70-110); UREA NITROGEN, BLOOD 9 mg/dL (7-18)
[2021-08-29 07:27] LABS: ANION GAP 7 mmol/L (8-16); CHLORIDE 93 mmol/L (98-107); GLOMERULAR FILTR. RATE CALC > 60 mL/min (>60); SODIUM SERUM 126 mmol/L (136-145)
[2021-08-29 08:30] VITALS: BP 131/91
[2021-08-29] MEDS: FOLIC ACID 1 MG TABLET PO SCH (08:38)
[2021-08-29] MEDS: DOCUSATE SODIUM 100 MG CAPSULE PO SCH ×2 (08:38→20:16)
[2021-08-29] MEDS: HEPARIN SODIUM,PORCINE 5,000 UNITS/ML VIAL SQ SCH ×3 (08:38→23:49)
[2021-08-29] MEDS: MULTIVITAMINS, THERAPEUTIC TABLET PO SCH (08:38)
[2021-08-29] MEDS: LOSARTAN POTASSIUM 50 MG TABLET PO SCH (08:38)
[2021-08-29] MEDS: SODIUM CHLORIDE 1 GM TABLET PO SCH ×3 (08:38→20:16)
[2021-08-29] MEDS: ASPIRIN 81 MG CHEWABLE TABLET PO SCH (08:38)
[2021-08-29] MEDS: THIAMINE 100 MG TABLET PO SCH (08:38)
[2021-08-29] MEDS: PANTOPRAZOLE SODIUM 40 MG DR TABLET PO SCH (08:38)
[2021-08-29] MEDS: METOPROLOL TARTRATE 25 MG TABLET PO SCH ×2 (08:39→20:18)
[2021-08-29] MEDS: AmLODIPine BESYLATE 10 MG TABLET PO SCH (08:40)
[2021-08-29] MEDS: POTASSIUM CHLORIDE 20 MEQ ER TABLET PO SCH (08:40)
[2021-08-29] MEDS: HYDROCODONE/ACETAMINOPHEN 5-325 MG TABLET PO PRN ×2 (08:40→20:22)
[2021-08-29] MEDS ORDERED: TOLVAPTAN 15 MG TABLET PO ONE (10:00)
[2021-08-29 16:12] VITALS: BP 133/85
[2021-08-29 19:30] VITALS: BP 137/79
[2021-08-30 04:00] VITALS: BP 115/72
[2021-08-30] MEDS: SUCRALFATE 1 GM/10 ML SUSPENSION UDCUP PO SCH ×2 (06:44→17:37)
[2021-08-30] MEDS: HYDROCODONE/ACETAMINOPHEN 5-325 MG TABLET PO PRN ×2 (06:49→20:54)
[2021-08-30 06:56] LABS: ANION GAP 7 mmol/L (8-16); CALCIUM, TOTAL 9.1 mg/dL (8.8-10.5); CARBON DIOXIDE 29 mmol/L (22-29); CHLORIDE 96 mmol/L (98-107); CREATININE 0.49 mg/dL (0.60-1.30); GLUCOSE,RANDOM 87 mg/dL (70-110); SODIUM SERUM 132 mmol/L (136-145); UREA NITROGEN, BLOOD 10 mg/dL (7-18)
[2021-08-30 06:58] LABS: GLOMERULAR FILTR. RATE CALC > 60 mL/min (>60)
[2021-08-30 08:03] VITALS: BP 119/71
[2021-08-30] MEDS: MULTIVITAMINS, THERAPEUTIC TABLET PO SCH (08:09)
[2021-08-30] MEDS: FOLIC ACID 1 MG TABLET PO SCH (08:09)
[2021-08-30] MEDS: PANTOPRAZOLE SODIUM 40 MG DR TABLET PO SCH (08:09)
[2021-08-30] MEDS: DOCUSATE SODIUM 100 MG CAPSULE PO SCH ×2 (08:10→20:51)
[2021-08-30] MEDS: THIAMINE 100 MG TABLET PO SCH (08:10)
[2021-08-30] MEDS: AmLODIPine BESYLATE 10 MG TABLET PO SCH (08:10)
[2021-08-30] MEDS: SODIUM CHLORIDE 1 GM TABLET PO SCH ×3 (08:10→20:53)
[2021-08-30] MEDS: ASPIRIN 81 MG CHEWABLE TABLET PO SCH (08:10)
[2021-08-30] MEDS: LOSARTAN POTASSIUM 50 MG TABLET PO SCH (08:10)
[2021-08-30] MEDS: POTASSIUM CHLORIDE 20 MEQ ER TABLET PO SCH (08:10)
[2021-08-30] MEDS: HEPARIN SODIUM,PORCINE 5,000 UNITS/ML VIAL SQ SCH ×2 (08:11→16:33)
[2021-08-30] MEDS: TOLVAPTAN 15 MG TABLET PO SCH (08:11)
[2021-08-30] MEDS: METOPROLOL TARTRATE 25 MG TABLET PO SCH ×2 (08:11→20:53)
[2021-08-30] MEDS ORDERED: IOHEXOL 350 MG/ML 100 ML VIAL ONE (12:31)
[2021-08-30] MEDS ORDERED: SODIUM CHLORIDE 0.9% 100 ML ONE (12:31)
[2021-08-30 16:00] VITALS: BP 134/90
[2021-08-30 19:28] VITALS: BP 146/91
[2021-08-31] MEDS: HEPARIN SODIUM,PORCINE 5,000 UNITS/ML VIAL SQ SCH ×4 (00:12→23:25)
[2021-08-31 04:35] VITALS: BP 147/92
[2021-08-31 05:43] LABS: ANION GAP 8 mmol/L (8-16); CALCIUM, TOTAL 9.3 mg/dL (8.8-10.5); CARBON DIOXIDE 30 mmol/L (22-29); CHLORIDE 97 mmol/L (98-107); CREATININE 0.42 mg/dL (0.60-1.30); GLUCOSE,RANDOM 80 mg/dL (70-110); POTASSIUM 4.6 mmol/L (3.5-5.1); SODIUM SERUM 135 mmol/L (136-145); UREA NITROGEN, BLOOD 12 mg/dL (7-18)
[2021-08-31 05:47] LABS: GLOMERULAR FILTR. RATE CALC > 60 mL/min (>60)
[2021-08-31] MEDS: SUCRALFATE 1 GM/10 ML SUSPENSION UDCUP PO SCH ×2 (06:14→17:05)
[2021-08-31 07:21] VITALS: BP 150/92
[2021-08-31] MEDS: PANTOPRAZOLE SODIUM 40 MG DR TABLET PO SCH (09:16)
[2021-08-31] MEDS: DOCUSATE SODIUM 100 MG CAPSULE PO SCH ×2 (09:16→20:24)
[2021-08-31] MEDS: MULTIVITAMINS, THERAPEUTIC TABLET PO SCH (09:16)
[2021-08-31] MEDS: ASPIRIN 81 MG CHEWABLE TABLET PO SCH (09:16)
[2021-08-31] MEDS: THIAMINE 100 MG TABLET PO SCH (09:16)
[2021-08-31] MEDS: FOLIC ACID 1 MG TABLET PO SCH (09:16)
[2021-08-31] MEDS: POTASSIUM CHLORIDE 20 MEQ ER TABLET PO SCH (09:16)
[2021-08-31] MEDS: SODIUM CHLORIDE 1 GM TABLET PO SCH ×3 (09:16→20:24)
[2021-08-31] MEDS: TOLVAPTAN 15 MG TABLET PO SCH (09:17)
[2021-08-31] MEDS: AmLODIPine BESYLATE 10 MG TABLET PO SCH (09:17)
[2021-08-31] MEDS: LOSARTAN POTASSIUM 50 MG TABLET PO SCH (09:17)
[2021-08-31] MEDS: METOPROLOL TARTRATE 25 MG TABLET PO SCH ×2 (09:17→20:24)
[2021-08-31 15:27] VITALS: BP 151/94
[2021-08-31] MEDS: HYDROCODONE/ACETAMINOPHEN 5-325 MG TABLET PO PRN ×2 (17:05→23:25)
[2021-08-31 19:43] VITALS: BP 144/86
[2021-09-01 04:09] VITALS: BP 149/94
[2021-09-01 05:42] LABS: ANION GAP 8 mmol/L (8-16); CALCIUM, TOTAL 9.1 mg/dL (8.8-10.5); CARBON DIOXIDE 27 mmol/L (22-29); CHLORIDE 95 mmol/L (98-107); CREATININE 0.48 mg/dL (0.60-1.30); GLOMERULAR FILTR. RATE CALC > 60 mL/min (>60); GLUCOSE,RANDOM 94 mg/dL (70-110); POTASSIUM 4.3 mmol/L (3.5-5.1); SODIUM SERUM 130 mmol/L (136-145); UREA NITROGEN, BLOOD 10 mg/dL (7-18)
[2021-09-01] MEDS: SUCRALFATE 1 GM/10 ML SUSPENSION UDCUP PO SCH (06:13)
[2021-09-01 08:02] VITALS: BP 152/95
[2021-09-01] MEDS: AmLODIPine BESYLATE 10 MG TABLET PO SCH (08:09)
[2021-09-01] MEDS: SODIUM CHLORIDE 1 GM TABLET PO SCH (08:09)
[2021-09-01] MEDS: DOCUSATE SODIUM 100 MG CAPSULE PO SCH (08:09)
[2021-09-01] MEDS: METOPROLOL TARTRATE 25 MG TABLET PO SCH (08:10)
[2021-09-01] MEDS: MULTIVITAMINS, THERAPEUTIC TABLET PO SCH (08:10)
[2021-09-01] MEDS: THIAMINE 100 MG TABLET PO SCH (08:10)
[2021-09-01] MEDS: ASPIRIN 81 MG CHEWABLE TABLET PO SCH (08:10)
[2021-09-01] MEDS: LOSARTAN POTASSIUM 50 MG TABLET PO SCH (08:10)
[2021-09-01] MEDS: FOLIC ACID 1 MG TABLET PO SCH (08:10)
[2021-09-01] MEDS: PANTOPRAZOLE SODIUM 40 MG DR TABLET PO SCH (08:11)
[2021-09-01] MEDS: POTASSIUM CHLORIDE 20 MEQ ER TABLET PO SCH (08:11)
[2021-09-01] MEDS: HEPARIN SODIUM,PORCINE 5,000 UNITS/ML VIAL SQ SCH (08:12)
[2021-09-01] MEDS: TOLVAPTAN 15 MG TABLET PO SCH (08:13)
[2021-09-01] MEDS ORDERED: NACL1 PO (09:34)
== END 2021-09-01 12:00 | disposition home health service (06) | DRG 315 ==
LOC: EMS 13:02 → 5S 22:05 → 6N 08-18 22:58
PROVIDERS: ADMIT Hospitalist; ATTEND Hospitalist
PROC: BP1AZZZ Fluoroscopy of Right Humerus (ICD-10-PCS; 2021-08-23)
PROC: 0PHC36Z Insertion of Intramedullary Internal Fixation Device into Right Humeral Head, Percutaneous Approach (ICD-10-PCS; principal; 2021-08-23 07:45)
DX: S42.211A Unspecified displaced fracture of surgical neck of right humerus, initial encounter for closed fracture (principal); E22.2 Syndrome of inappropriate secretion of antidiuretic hormone; E44.0 Moderate protein-calorie malnutrition; K70.30 Alcoholic cirrhosis of liver without ascites; E87.6 Hypokalemia; D64.9 Anemia, unspecified; I10 Essential (primary) hypertension; Y90.7 Blood alcohol level of 200-239 mg/100 ml; W01.0XXA Fall on same level from slipping, tripping and stumbling without subsequent striking against object, initial encounter; Z20.822 Contact with and (suspected) exposure to COVID-19; F10.10 Alcohol abuse, uncomplicated; K21.9 Gastro-esophageal reflux disease without esophagitis; M81.0 Age-related osteoporosis without current pathological fracture; Z79.82 Long term (current) use of aspirin; Z68.1 Body mass index [BMI] 19.9 or less, adult; Y93.89 Activity, other specified; Y92.89 Other specified places as the place of occurrence of the external cause; Y99.8 Other external cause status; Z72.0 Tobacco use; Z71.6 Tobacco abuse counseling
CPT/HCPCS: 71045; 71260; 72193; 73200; 74160; 80048; 80053; 81003; 82533; 82962; 83690; 83735; 83935; 84100; 84132; 84295; 84300; 84443; 84484; 85025; 87081; 93005; 93306; 97110; 97116; 97162; 97167; 97530; 97535; 99291; C9113; C9290; G0378; G0480; J0690; J1100; J1170; J1644; J2250; J2370; J2405; J2704; J2765; J3010; J3370; J3475; J3480; J3490; J7030; J7050; Q9967; 36415-L1; 36415-TC; C1716; Z7610